=== PATIENT | male | born 1955 | race Caucasian/White ===

== ENCOUNTER 2024-05-23 18:06 | Observation (INO) | payer OTHER ==
[~2024-05-23] VITALS: Ht 182.9 cm; Wt 68.0 kg
[~2024-05-23 18:06] MED LIST: ALBU90OI INH; ASPI325EC PO; Colace250 MG PO; FURO20 PO; Hair, Skin & N1 EACH PO; LACT10SY PO; LEVSOD137 PO; MAGOXI400 PO; METO50 PO; NALT50 PO; OMEP20ER PO; SPIR50 PO
[2024-05-23 18:56] LABS: BASOPHILS ABSOLUTE AUTO 0.07 K/mm3 (0.00-0.23); BASOPHILS PERCENT AUTO 1 % (0-2); EOSINOPHILS PERCENT AUTO 3 % (0-6); Hematocrit 31.3 % (37.0-53.0); IMMATURE GRAN ABSOLUTE AUTO 0.07 K/mm3 (0.00-0.10); IMMATURE GRAN PERCENT AUTO 1 % (0-1); LYMPHOCYTES ABSOLUTE AUTO 0.48 K/mm3 (0.84-5.20); LYMPHOCYTES PERCENT AUTO 3 % (21-46); MONOCYTES ABSOLUTE AUTO 1.52 K/mm3 (0.16-1.47); MONOCYTES PERCENT AUTO 10 % (4-13); Mean Corpuscular HGB 21.9 pg (26.0-34.0); Mean Corpuscular HGB Conc 31.9 g/dL (31.5-36.5); Mean Corpuscular Volume 69 fL (80-100); Mean Platelet Volume 8.2 fL (9.1-12.4); NEUTROPHILS ABSOLUTE AUTO 12.55 K/mm3 (1.96-9.15); NEUTROPHILS PERCENT AUTO 83 % (41-73); NRBC ABSOLUTE 0.02 K/mm3 (0.00-0.02); NRBC Auto 0.1 /100 WBC (0.0-0.2); Platelet Count 352 K/mm3 (150-400); RDW Coefficient Variation 21.2 % (11.7-14.2); RDW Standard Deviation 49.5 fL (35.1-46.3); Red Blood Cell Count 4.57 M/mm3 (4.30-5.90); White Blood Cell Count 15.09 K/mm3 (4.00-11.30)
[2024-05-23 19:28] LABS: Albumin, Blood 2.1 g/dL (3.4-5.0); Albumin/Globulin Ratio 0.4 (0.8-1.8); Bilirubin, Total 1.3 mg/dL (0.1-1.0); Bun/Creatinine Ratio 19.9 (12.0-20.0); Calcium, Blood 8.7 mg/dL (8.5-10.1); Creatinine, Blood 0.65 mg/dL (0.60-1.20); Globulin, Blood 5.8 g/dL (2.2-4.0); Potassium, Blood 4.2 mmol/L (3.5-5.5); Total Protein, Blood 7.9 g/dL (6.4-8.2)
[2024-05-23] MEDS ORDERED: Morphine Sulfate 4 MG/1 ML Injection IV ONE (20:10)
[2024-05-23] MEDS ORDERED: NS 1,000 ML IV SCH ×2 (21:20→21:50)
[2024-05-23] MEDS ORDERED: OxyCODONE HCL 5 MG TAB PO PRN (21:50)
[2024-05-23] MEDS ORDERED: FLU VACC TS2024-25(6MOS UP)/PF 45 MCG/0.5 ML SYRINGE IM ONE (21:55)
[2024-05-23] MEDS ORDERED: Albuterol 2.5 MG/3 ML VIAL INH PRN (21:55)
[2024-05-23 22:17] LABS: Magnesium, Blood 1.2 mg/dL (1.6-2.4)
[2024-05-23 22:18] LABS: Thyroid Stimulating Hormone 4.8 uIU/mL (0.360-4.800)
[2024-05-23 23:14] LABS: Osmolality, Urine 282 mos/kg (15-1400)
[2024-05-23 23:23] LABS: Sodium, Urine, Random 11 mmol/L (20-110)
[2024-05-23 23:41] VITALS: BP 117/76
[2024-05-24] MEDS ORDERED: ONDA8 PO (04:22)
[2024-05-24] MEDS ORDERED: BACL10 PO (04:23)
[2024-05-24] MEDS ORDERED: HYDHCL25 PO (04:24)
[2024-05-24] MEDS ORDERED: LIDOCAINE1 EACH TOP (04:26)
[2024-05-24] MEDS ORDERED: TRAM50 PO (04:26)
[2024-05-24] MEDS ORDERED: NALOXONE HCL4 MG (04:30)
[2024-05-24] MEDS ORDERED: STRIVERDI RESPIM4 G1 INH (04:32)
[2024-05-24] MEDS ORDERED: ALBU90OI61 INH (04:33)
[2024-05-24 04:41] VITALS: BP 105/67
[2024-05-24 05:22] LABS: BASOPHILS ABSOLUTE AUTO 0.09 K/mm3 (0.00-0.23); BASOPHILS PERCENT AUTO 1 % (0-2); EOSINOPHILS ABSOLUTE AUTO 0.56 K/mm3 (0.00-0.68); EOSINOPHILS PERCENT AUTO 5 % (0-6); Hematocrit 28.4 % (37.0-53.0); Hemoglobin 9.1 g/dL (13.5-17.5); IMMATURE GRAN ABSOLUTE AUTO 0.07 K/mm3 (0.00-0.10); IMMATURE GRAN PERCENT AUTO 1 % (0-1); LYMPHOCYTES ABSOLUTE AUTO 0.64 K/mm3 (0.84-5.20); LYMPHOCYTES PERCENT AUTO 5 % (21-46); MONOCYTES ABSOLUTE AUTO 1.51 K/mm3 (0.16-1.47); MONOCYTES PERCENT AUTO 12 % (4-13); Mean Corpuscular Volume 69 fL (80-100); Mean Platelet Volume 8.4 fL (9.1-12.4); NEUTROPHILS ABSOLUTE AUTO 9.64 K/mm3 (1.96-9.15); NEUTROPHILS PERCENT AUTO 77 % (41-73); Platelet Count 318 K/mm3 (150-400); RDW Coefficient Variation 21.1 % (11.7-14.2); RDW Standard Deviation 49.2 fL (35.1-46.3); Red Blood Cell Count 4.13 M/mm3 (4.30-5.90); White Blood Cell Count 12.51 K/mm3 (4.00-11.30)
[2024-05-24 05:36] LABS: Albumin, Blood 1.9 g/dL (3.4-5.0); Albumin/Globulin Ratio 0.4 (0.8-1.8); Bun/Creatinine Ratio 16.7 (12.0-20.0); Calcium, Blood 8.4 mg/dL (8.5-10.1); Creatinine, Blood 0.66 mg/dL (0.60-1.20); Globulin, Blood 4.8 g/dL (2.2-4.0); Potassium, Blood 4.1 mmol/L (3.5-5.5); Total Protein, Blood 6.7 g/dL (6.4-8.2)
[2024-05-24] MEDS ORDERED: Levothyroxine Sodium 0.1 MG Tab PO SCH (06:00)
[2024-05-24] MEDS ORDERED: Omeprazole 20 MG CapCR PO SCH (06:00)
--- NOTE | 2024-05-24 06:04 | NUR ---
[employer] [facility] COMMERCIAL MEDICATIONS ARE NOT RECONCILED BECAUSE PT CAME TO THE FLOOR AT MIDNIGHT AND HIS IS SLEEPING AND PT DOESNT KNOW HIS MEDICATIONS VERY WELL, DEFINITELY DOESNT KNOW DOSAGES. HE SAYS HIS CAN BRING IN HIS PILL BOTTLES TODAY SO WE CAN TAKE NOTE OF WHAT HE TAKES. OXYCODONE WAS EFFECTIVE AT RELIEVING PTS BACK PAIN. HIS PAIN SCORE WAS UP AROUND A 7 AND IT CAME DOWN TO A 2-3 WITHOUT SIDE EFFECTS. NO SYMPTOMS NOTED FROM HIS HYPONATREMIA. IVF RUNNING AT 50/HR
[2024-05-24 07:33] VITALS: BP 112/73
[2024-05-24 08:45] LABS: International Normalized Ratio 1.29; Prothrombin Time Results 13.5 Sec (9.7-11.5)
[2024-05-24] MEDS ORDERED: Enoxaparin 40 MG/0.4 ML SYR SC SCH (09:00)
[2024-05-24] MEDS ORDERED: Magnesium Oxide 400 MG Tab PO SCH (09:00)
--- NOTE | 2024-05-24 14:03 | NUR ---
MET WITH PATIENT TO ASSESS SYMPTOMS. HE REPORTED THAT HIS PAIN WAS IMPROVED FROM WHEN HE INITALLY CAME IN. HE REPORTED THAT HE DOES NOT HAVE A LOT OF MOBILITY. HIS APPETITE IS POOR HE HAS BEEN RECIEVING NAUSEA MEDICATION. CANCER TREATMENTS FOR APPROX 1 MONTH. HE REPORTED THAT HE HAS GOOD FAMILY SUPPORT AT HOME. WE DISCUSSED HIS GOALS AFTER HE LEAVES THE HOSPITAL. HE EXPRESSED THAT HE IS WANTING TO CONTINUE WITH CANCER TREATMENTS AT THIS TIME. WE DISCUSSED CODE STATUS. HE IS CURRENTLY A FULL CODE. DISCUSSED WHAT A CODE WOULD ENTAIL. COMPLICATIONS SUCH HIS ESO VARICIES, AN SURVIVAL RATES. HE EXPRESSED THAT HE WOULD STILL LIKE THEM TO TRY. I ENCOURAGED HIM TO FILL OUT A POLST WITH HIS PRIMARY CARE PROVIDER OR ONCOLOGIST. ENCOURAGED HIM TO DISCUSS THIS WITH HIS FAMILY.
[2024-05-24] MEDS ORDERED: OXAYDO5 M1 PO (15:15)
--- NOTE | 2024-05-24 16:52 | NUR ---
ROUNDED ON PATIENT. HE WAS GETTING DRESSED AT THIS TIME. DISCUSSED WITH BEDSIDE RN. PATIENT IS TO BE DISCHARGED. HE IS RECIEVING NEW DIALYSIS, BUT HAD SOME EPISODES OF LOW BP, OTHERWISE HE IS FEELING FINE.
[2024-05-24] MEDS ORDERED: Sennosides 8.6 MG Tab PO SCH (21:00)
== END 2024-05-24 16:01 | disposition home or self-care (01) ==
LOC: ER 18:06 → MEDS 18:07 → ERHOLD 18:07 → MEDS 23:31
PROVIDERS: Internal Medicine; Nurse Practitioner Acute Care; Student in an Organized Health Care Education/Training Program; ADMIT Internal Medicine
DX: E87.1 Hypo-osmolality and hyponatremia (principal); K70.31 Alcoholic cirrhosis of liver with ascites; C22.8 Malignant neoplasm of liver, primary, unspecified as to type; I81 Portal vein thrombosis; K31.89 Other diseases of stomach and duodenum; E03.9 Hypothyroidism, unspecified; F17.210 Nicotine dependence, cigarettes, uncomplicated; Z88.8 Allergy status to other drugs, medicaments and biological substances; Z79.899 Other long term (current) drug therapy
CPT/HCPCS: 36415; 71045; 74177; 80053; 83605; 83690; 83735; 83930; 83935; 84295; 84300; 84443; 85025; 85610; 93005; 93010; 94640; 94664; 94760; 96361; 96372; 96374-59; 99285-25; A9270; G0378; J1650; J2270; J7030; Q9967

== ENCOUNTER 2024-06-03 17:35 | Emergency (ER) | payer OTHER ==
[~2024-06-03] VITALS: Ht 182.9 cm; Wt 68.0 kg
[~2024-06-03 17:35] MED LIST changes: +ALBU90OI61 INH; +BACL10 PO; +HYDHCL25 PO; +LIDOCAINE1 EACH TOP; +NALOXONE HCL4 MG; +ONDA8 PO; +OXAYDO5 M1 PO; +STRIVERDI RESPIM4 G1 INH; +TRAM50 PO
[2024-06-03] MEDS ORDERED: OxyCODONE HCL 5 MG TAB PO ONE (18:25)
[2024-06-03] MEDS ORDERED: Ketorolac Tromethamine 15mg Vial IV ONE (18:25)
[2024-06-03 18:42] VITALS: BP 111/71
[2024-06-03 18:47] LABS: BASOPHILS ABSOLUTE AUTO 0.05 K/mm3 (0.00-0.23); BASOPHILS PERCENT AUTO 0 % (0-2); EOSINOPHILS PERCENT AUTO 0 % (0-6); Hematocrit 38.3 % (37.0-53.0); Hemoglobin 12.3 g/dL (13.5-17.5); IMMATURE GRAN ABSOLUTE AUTO 0.16 K/mm3 (0.00-0.10); IMMATURE GRAN PERCENT AUTO 1 % (0-1); LYMPHOCYTES ABSOLUTE AUTO 0.48 K/mm3 (0.84-5.20); LYMPHOCYTES PERCENT AUTO 2 % (21-46); MONOCYTES ABSOLUTE AUTO 1.73 K/mm3 (0.16-1.47); MONOCYTES PERCENT AUTO 8 % (4-13); Mean Corpuscular HGB 24.4 pg (26.0-34.0); Mean Corpuscular HGB Conc 32.1 g/dL (31.5-36.5); Mean Corpuscular Volume 76 fL (80-100); Mean Platelet Volume 8.4 fL (9.1-12.4); NEUTROPHILS ABSOLUTE AUTO 18.52 K/mm3 (1.96-9.15); NEUTROPHILS PERCENT AUTO 88 % (41-73); Platelet Count 195 K/mm3 (150-400); RDW Coefficient Variation 32.2 % (11.7-14.2); Red Blood Cell Count 5.04 M/mm3 (4.30-5.90); White Blood Cell Count 20.94 K/mm3 (4.00-11.30)
[2024-06-03 19:05] LABS: Albumin, Blood 1.7 g/dL (3.4-5.0); Albumin/Globulin Ratio 0.3 (0.8-1.8); Bilirubin, Total 2.7 mg/dL (0.1-1.0); Bun/Creatinine Ratio 33.5 (12.0-20.0); Calcium, Blood 9.6 mg/dL (8.5-10.1); Creatinine, Blood 0.87 mg/dL (0.60-1.20); Potassium, Blood 5.4 mmol/L (3.5-5.5); Total Protein, Blood 6.7 g/dL (6.4-8.2)
[2024-06-03] MEDS ORDERED: Robaxin750 MG PO (19:48)
[2024-06-03] MEDS ORDERED: RX Prepack 6 Tabs Oxycodone 5mg UD ONE (19:50)
== END 2024-06-03 20:09 | disposition home or self-care (01) ==
LOC: ER 17:35
PROVIDERS: Student in an Organized Health Care Education/Training Program
DX: M54.50 Low back pain, unspecified (principal); G89.29 Other chronic pain; F17.200 Nicotine dependence, unspecified, uncomplicated; Z79.890 Hormone replacement therapy; Z79.899 Other long term (current) drug therapy
CPT/HCPCS: 80053; 85025; 96374; 99283-25; A9270; J1885

== ENCOUNTER 2024-06-08 09:53 | Observation (INO) | payer OTHER ==
[~2024-06-08] VITALS: Ht 182.9 cm; Wt 68.0 kg
[~2024-06-08 09:53] MED LIST changes: +Robaxin750 MG PO
[2024-06-08] MEDS ORDERED: Morphine Sulfate 4 MG/1 ML Injection IV ONE (10:10)
[2024-06-08 11:03] LABS: BASOPHILS ABSOLUTE AUTO 0.09 K/mm3 (0.00-0.23); BASOPHILS PERCENT AUTO 0 % (0-2); EOSINOPHILS ABSOLUTE AUTO 0.01 K/mm3 (0.00-0.68); EOSINOPHILS PERCENT AUTO 0 % (0-6); Hemoglobin 11.7 g/dL (13.5-17.5); IMMATURE GRAN ABSOLUTE AUTO 1.09 K/mm3 (0.00-0.10); IMMATURE GRAN PERCENT AUTO 4 % (0-1); LYMPHOCYTES ABSOLUTE AUTO 0.65 K/mm3 (0.84-5.20); LYMPHOCYTES PERCENT AUTO 3 % (21-46); MONOCYTES ABSOLUTE AUTO 2.22 K/mm3 (0.16-1.47); MONOCYTES PERCENT AUTO 8 % (4-13); NEUTROPHILS ABSOLUTE AUTO 22.28 K/mm3 (1.96-9.15); NEUTROPHILS PERCENT AUTO 85 % (41-73); Platelet Count 268 K/mm3 (150-400); White Blood Cell Count 26.34 K/mm3 (4.00-11.30)
[2024-06-08 11:27] LABS: Hematocrit 34.6 % (37.0-53.0); Mean Corpuscular HGB 25.2 pg (26.0-34.0); Mean Corpuscular HGB Conc 33.8 g/dL (31.5-36.5); Mean Corpuscular Volume 75 fL (80-100); Red Blood Cell Count 4.64 M/mm3 (4.30-5.90)
[2024-06-08 12:51] LABS: Magnesium, Blood 1.7 mg/dL (1.6-2.4)
[2024-06-08 13:17] LABS: Albumin, Blood 1.7 g/dL (3.4-5.0); Albumin/Globulin Ratio 0.4 (0.8-1.8); Bilirubin, Total 5.3 mg/dL (0.1-1.0); Bun/Creatinine Ratio 54.4 (12.0-20.0); Calcium, Blood 10.4 mg/dL (8.5-10.1); Creatinine, Blood 1.49 mg/dL (0.60-1.20); Globulin, Blood 4.8 g/dL (2.2-4.0); Potassium, Blood 6.3 mmol/L (3.5-5.5); Total Protein, Blood 6.5 g/dL (6.4-8.2)
[2024-06-08] MEDS ORDERED: CefTRIAXone Sodium 1,000 MG in NS 100 ML IV ONE (13:20)
[2024-06-08] MEDS ORDERED: Albuterol 2.5 MG/3 ML VIAL INH SCH ×2 (13:35→17:05)
[2024-06-08] MEDS ORDERED: Insulin Regular 100 Unit/ML 1ML Dose IV ONE (13:35)
[2024-06-08] MEDS ORDERED: Sodium Zirconium Cyclosilicate 10 GM Packet PO ONE (13:35)
[2024-06-08] MEDS ORDERED: Dextrose 50% 50 ML Syringe IV ONE (13:40)
[2024-06-08] MEDS ORDERED: Dextrose 50% 50 ML Vial IV ONE (14:00)
[2024-06-08] MEDS ORDERED: Furosemide 10 MG/ML 4ML Vial IV ONE (14:35)
[2024-06-08 14:36] LABS: Hemoglobin 12.3 g/dL (13.5-17.5); Mean Platelet Volume 9.1 fL (9.1-12.4); Platelet Count 271 K/mm3 (150-400)
[2024-06-08 14:38] LABS: Hematocrit 36.7 % (37.0-53.0); Mean Corpuscular HGB 25.4 pg (26.0-34.0); Mean Corpuscular HGB Conc 33.5 g/dL (31.5-36.5); Mean Corpuscular Volume 76 fL (80-100); Red Blood Cell Count 4.84 M/mm3 (4.30-5.90)
[2024-06-08] MEDS ORDERED: FLU VACC TS2024-25(6MOS UP)/PF 45 MCG/0.5 ML SYRINGE IM SCH (14:45)
[2024-06-08] MEDS ORDERED: Scopolamine Hydrobromide Patch TOP PRN (14:45)
[2024-06-08] MEDS ORDERED: Atropine Sulfate 1% Opth Soln 2ML BTL SL PRN (14:45)
[2024-06-08] MEDS ORDERED: LORazepam 1 MG Tab PO PRN (14:45)
[2024-06-08] MEDS ORDERED: Promethazine HCl 25 MG Tab PO PRN (14:50)
[2024-06-08] MEDS ORDERED: Morphine Sulfate 20 MG/1ML 1 ML Oral Syringe SL PRN (14:50)
[2024-06-08] MEDS ORDERED: Ondansetron HCl 2 MG / ML 2ML Vial IV PRN (14:50)
[2024-06-08] MEDS ORDERED: HyDROXyzine HCl 25 MG Tab PO PRN (14:50)
[2024-06-08] MEDS ORDERED: Docusate Sodium 250 MG Cap PO PRN (14:50)
--- NOTE | 2024-06-08 16:39 | NUR ---
Pt arrived to 336 via gurney from ED, report obtained, pt moved to bed in room, he is very weak, thin, a/ox3-4, painful with movement, lungs are clear in [place], course in bases, resp even and unlabored, no cough noted, on r/a, hrr, 4+ edema noted to right lower ext, 2+ to left, feet are icey cold, pp unable to be palpated, cap refill< 5 sec, piv to rfa site is clear and patent, btx4, abd flat soft nontender, has large inguenal hernias into the scrotum, as well as a umbilical hernia, skin has scattered bruising, no open areas, maew, profoundly weak, checo, oriented to room lay out and call system, call light in reach.
--- NOTE | 2024-06-08 18:04 | NUR ---
pt moaning in pain, medicated with roxinol, states he needs to have a bm, and bladder feels full, did a bladder scan, showed over 800 but could be acites, notified Dr. Long, he ok to straight cath, if large amount out will leave, also notified him of increased lactic acid to 4.8, no new orders for that. call light in reach.
[2024-06-08] MEDS ORDERED: Lidocaine 2% Jelly Uro-Jet UR ONE (18:15)
--- NOTE | 2024-06-08 18:32 | NUR ---
14f coude elias placed using sterile technique, had return of light tristen urine continues to drain, but immediatly got a return of 500mls. pt expresses some relief. call light in reach.
[2024-06-08 19:04] VITALS: BP 96/66
[2024-06-08] MEDS ORDERED: Baclofen 10 MG Tab PO SCH (21:00)
[2024-06-08 22:59] VITALS: BP 98/65
--- NOTE | 2024-06-08 23:09 | NUR ---
DURING ROUNDING PT ASSESSED AND HAS MOTTLING NOTED ON BLE AND COOL TO TOUCH. PT RESPIRATIONS ARE MORE SHALLOW AND LABORED. PT SPOUSE CONTACTED AND NOTIFIED OF CHANGE IN PT CONDITION. SPOUSE WAS INTOXICATED AND CONTACTING FAMILY TO BRING THEM TO HOSPITAL. SPOUSE GIVEN DISPATCH PHONE NUMBER AND INSTRUCTIONS ON HOW TO REACH THIS RN.
[2024-06-09 04:34] VITALS: BP 71/49
--- NOTE | 2024-06-09 05:26 | NUR ---
DURING AM VS PT BP 71/49 (56). HOSPITALIST NOTIFIED THAT PT HAS COMFORT CARE MEDICATIONS ALREADY ORDERED AND THAT PALLIATIVE CARE WAS NOT HERE WHEN PT WAS ADMITTED YESTERDAY AFTERNOON. ADMITTING MD H&P STATES COMFORT CARE MEASURES, SO HOSPITALIST STATED TO PUT COMFORT CARE ORDERS IN UNDER THEIR NAME.
--- NOTE | 2024-06-09 05:31 | NUR ---
SHIFT SUMMARY NOC PT UNRESPPONSIVE. PT CONDITION DECLINED FROM BEGINNING OF SHIFT. PT WAS ABLE TO TAKE BEDTIME RX ALONG WITH ROXANOL FOR PAIN RELATED TO LIVER CX WITH THELMA AND AIR HUNGER. DONALDSON IN PLACE DUE TO RETENTION AND COMFORT MEASURES. DURING ROUNDING PT HAD MOTTLING NOTED ON BLE WITH BLUEISH COLOR TO BOTTOM OF BOTH FEET. PT HAS COMFORT CARE ORDER AND MEDICATIONS IN PLACE, PT FAMILY CONTACTED AND INFORMED IN PT DECLINING STATUS, AND FAMILY CAME IN TO SEE PT. PT EX WAS ASKING FOR A NOTE FROM CARE MANAGEMENT OR MD STATING REASONS WHY PT WILL BE UNABLE TO SHOW UP FOR WORK, SO THAT THEY CAN STAY WITH PT, WILL PASS ALONG TO DAY RN. DURING ROUNDING PT NOTED LUNG SOUNDS MOIST, SCOPOLAMINE PATCH PLACED BEHIND L EAR FOR SECRETIONS. PT CURRENTLY RESTING WITH FAMILY BEDSIDE, BED IN LOWEST POSITION, AND CALL LIGHT WITHIN REACH.
[2024-06-09] MEDS ORDERED: Omeprazole 20 MG CapCR PO SCH (06:00)
[2024-06-09] MEDS ORDERED: Levothyroxine Sodium 0.137 MG Tab PO SCH (06:00)
--- NOTE | 2024-06-09 06:31 | NUR ---
SHIFT SUMMARY NOC PT UNRESPPONSIVE. PT CONDITION DECLINED FROM BEGINNING OF SHIFT. PT WAS ABLE TO TAKE BEDTIME RX ALONG WITH ROXANOL FOR PAIN RELATED TO LIVER CX WITH THELMA AND AIR HUNGER. DONALDSON IN PLACE DUE TO RETENTION AND COMFORT MEASURES. DURING ROUNDING PT HAD MOTTLING NOTED ON BLE WITH BLUEISH COLOR TO BOTTOM OF BOTH FEET. PT HAS COMFORT CARE ORDER IN PLACE AFTER BP 71/49 FOR AM VS AND HOSPITALIST NOTIFIED. MEDICATIONS WERE ALREADY IN PLACE, PT FAMILY CONTACTED AND INFORMED IN PT DECLINING STATUS, AND FAMILY CAME IN TO SEE PT. PT EX WAS ASKING FOR A NOTE FROM CARE MANAGEMENT OR MD STATING REASONS WHY PT WILL BE UNABLE TO SHOW UP FOR WORK, SO THAT THEY CAN STAY WITH PT, WILL PASS ALONG TO DAY RN. DURING ROUNDING PT NOTED LUNG SOUNDS MOIST, SCOPOLAMINE PATCH PLACED BEHIND L EAR FOR SECRETIONS. PT CURRENTLY RESTING WITH FAMILY BEDSIDE, BED IN LOWEST POSITION, AND CALL LIGHT WITHIN REACH.
--- NOTE | 2024-06-09 07:30 | NUR ---
PT STRUGGLING BREATHING. 5 MG ROXANOL ADMIN.
--- NOTE | 2024-06-09 08:10 | NUR ---
PT STILL STRUGGLING, SOME WORSE. GAVE 10 MG ROXANOL.
--- NOTE | 2024-06-09 08:20 | NUR ---
PT FINALLY HAS CALMED DOWN, FAMILY STATES WAS STRUGGLING, NOW RESTING. PRESENTS EMINENT. AGONAL BREATHING NOW.
--- NOTE | 2024-06-09 08:39 | NUR ---
PT PASSED 0830, FAMILY IN ROOM. DR NOTIFIED.
--- NOTE | 2024-06-09 09:45 | NUR ---
Spiritual Care - EOL- [facility]. Pt. had passed when this cause analyst was called to the room. Ex is present and displays evidence of being emotionally spent. After facilitating a short life review matters of EOL decisions take place. Ex Spouse requested paperwork of his admission for her employer, and it is provided by the charge nurse. The Pt. is a full benefit [place], and the family has chosen [facility] for their home services.
== END 2024-06-09 12:06 ==
LOC: ER 09:53 → MEDS 09:54 → ENPENDDIS 06-09 10:05 → MEDS 06-09 12:06
PROVIDERS: Emergency Medicine; ADMIT Internal Medicine
DX: C22.0 Liver cell carcinoma (principal); C79.9 Secondary malignant neoplasm of unspecified site; E88.A Wasting disease (syndrome) due to underlying condition; K74.60 Unspecified cirrhosis of liver; R18.8 Other ascites; I81 Portal vein thrombosis; E87.1 Hypo-osmolality and hyponatremia; E87.20 Acidosis, unspecified; E87.5 Hyperkalemia; D72.829 Elevated white blood cell count, unspecified; R62.7 Adult failure to thrive; J43.9 Emphysema, unspecified; E03.9 Hypothyroidism, unspecified; F17.200 Nicotine dependence, unspecified, uncomplicated; Z66 Do not resuscitate; Z79.890 Hormone replacement therapy; Z79.891 Long term (current) use of opiate analgesic; Z79.899 Other long term (current) drug therapy; Z88.8 Allergy status to other drugs, medicaments and biological substances; Z91.012 Allergy to eggs
CPT/HCPCS: 36415; 51702; 71045; 74177; 76870; 80053; 83605; 83690; 83735; 85025; 85027; 87040; 93005; 93010; 93971; 94640; 94644; 94664; 94760; 96365-59; 96375; 99285-25; A9270; G0378; J0696; J1815; J1940; J2270; J7799; Q9967